=== PATIENT | female | born 1990 | race Caucasian/White ===

== ENCOUNTER 2019-09-24 20:25 | Inpatient (IN) | payer OTHER ==
[~2019-09-24] VITALS: Ht 157.5 cm; Wt 2.7 kg
[2019-09-24] MEDS ORDERED: PRENATAL TABLE1 EAC3 PO (20:46)
== END 2019-09-28 14:34 | disposition home or self-care (01) | DRG 788 ==
LOC: LDR 20:25 → OB/GYN 09-26 00:07
PROVIDERS: ADMIT Obstetrics & Gynecology
PROC: 4A1HXFZ Monitoring of Products of Conception, Cardiac Rhythm, External Approach (ICD-10-PCS; 2019-09-25)
PROC: 3E033VJ Introduction of Other Hormone into Peripheral Vein, Percutaneous Approach (ICD-10-PCS; 2019-09-25)
PROC: 10D00Z1 Extraction of Products of Conception, Low, Open Approach (ICD-10-PCS; principal; 2019-09-25 22:00)
DX: O41.03X0 Oligohydramnios, third trimester, not applicable or unspecified (principal); O61.0 Failed medical induction of labor; O32.4XX0 Maternal care for high head at term, not applicable or unspecified; Z3A.39 39 weeks gestation of pregnancy; Z37.0 Single live birth

== ENCOUNTER 2022-10-14 08:45 | Inpatient (IN) | payer OTHER ==
[~2022-10-14] VITALS: Ht 157.5 cm; Wt 2.7 kg
[~2022-10-14 08:45] MED LIST: PRENATAL TABLE1 EAC3 PO
[2022-10-14] MEDS ORDERED: GUAIATUSSIN AC118 ML PO (10:53)
== END 2022-10-21 13:11 | disposition home or self-care (01) | DRG 788 ==
LOC: OB/GYN 10-19 08:45 → O/R 10-19 11:42 → OB/GYN 10-19 11:42
PROVIDERS: ADMIT Obstetrics & Gynecology; ATTEND Obstetrics & Gynecology
PROC: 4A1HXCZ Monitoring of Products of Conception, Cardiac Rate, External Approach (ICD-10-PCS; 2022-10-19)
PROC: 10D00Z1 Extraction of Products of Conception, Low, Open Approach (ICD-10-PCS; principal; 2022-10-19 09:30)
DX: O34.211 Maternal care for low transverse scar from previous cesarean delivery (principal); Z3A.38 38 weeks gestation of pregnancy; Z37.0 Single live birth; Z20.822 Contact with and (suspected) exposure to COVID-19